=== PATIENT | female | born 1965 | race Caucasian/White ===

== ENCOUNTER 2016-04-19 10:31 | Emergency (ER) | payer MEDICAID ==
[~2016-04-19] VITALS: Ht 165.1 cm; Wt 62.6 kg
[2016-04-19 10:31] VITALS: BP 116/77; PULSE 74; RESP 19; TEMP 97.3; O2SAT 98
[~2016-04-19 10:31] MED LIST: ARIP15TA2 PO; BUSP15TA PO; KLO1 PO; SERT100T PO; TRAZ150T77 PO
--- NOTE | 2016-04-19 10:31 | NUR ---
Patient triaged and placed in waiting room. VSS and patient appears in no acute distress at this time. Accompanied by FRIEND, awaiting available bed, and MD notified of need for MSE.
[2016-04-19 11:07] LABS: BASOPHILS # (AUTO) 0.1 K/uL (0.0-0.2); BASOPHILS % (AUTO) 0.5 % (0.0-2.0); EOSINOPHILS # (AUTO) 0.3 K/uL (0.0-0.4); EOSINOPHILS % (AUTO) 2.6 % (0.0-4.0); HEMATOCRIT 38.3 % (36-48); HEMOGLOBIN 13.1 g/dL (12.0-16.0); LYMPHOCYTES # (AUTO) 1.8 K/uL (1.0-5.5); MEAN CORPUSCULAR HEMOGLOBIN 31 pg (27-31); MEAN CORPUSCULAR HGB CONC 34 % (32-36); MEAN CORPUSCULAR VOLUME 91 fL (79.0-98.0); MONOCYTES # (AUTO) 0.6 K/uL (0.0-1.0); MONOCYTES % (AUTO) 5.7 % (1.7-9.3); NEUTROPHILS # (AUTO) 8.5 K/uL (1.8-7.7); NEUTROPHILS % (AUTO) 75.2 % (40.0-70.0); PLATELET COUNT (AUTO) 248 K/uL (130-430); RED CELL DISTRIBUTION WIDTH 13.4 % (9.0-15.0); WHITE BLOOD COUNT (AUTO) 11.3 K/uL (4.8-10.8)
[2016-04-19 11:11] LABS: CALCIUM 9.7 mg/dL (8.4-11.0); CREATININE 0.86 mg/dL (0.55-1.30)
[2016-04-19 11:14] LABS: INR 0.9 (0.8-1.2); PROTHROMBIN TIME 9.4 SECS (9.5-12.5)
[2016-04-19 11:16] LABS: ALBUMIN 3.7 g/dL (3.4-4.8); TOTAL BILIRUBIN 0.3 mg/dL (0.0-1.0); TOTAL PROTEIN, SERUM 7.5 g/dL (6.4-8.3)
--- NOTE | 2016-04-19 11:40 | NUR ---
DR SINGH EVALUATING PT IN TRIAGE ROOM
--- NOTE | 2016-04-19 12:00 | NUR ---
Patient to ER bed 4 to gown for evaluation by nathanael. Side rails up. Report given to me.
--- NOTE | 2016-04-19 12:10 | NUR ---
Patient presents to the emergency department with complaints of generalized 10/10 generalized abd pain with nausea the last few days. denies diarrhea. Patient states she has not taken anything for pain. will continue to monitor.
[2016-04-19] MEDS ORDERED: cefTRIAXone 1 GM IVPB PREMIX 50 ML IV ONE (12:15)
[2016-04-19 12:19] LABS: BILIRUBIN,URINE NEGATIVE (NEGATIVE); BLOOD, URINE NEGATIVE (NEGATIVE); CLARITY/URINE CLEAR (CLEAR); COLOR,URINE YELLOW (YELLOW); GLUCOSE,URINE NEGATIVE (NEGATIVE); KETONES,URINE NEGATIVE (NEGATIVE); LEUKOCYTE ESTERASE ,URINE NEGATIVE (NEGATIVE); NITRITE, URINE NEGATIVE (NEGATIVE); PH,URINE 5.5 (5.0-8.0); PROTEIN URINE NEGATIVE (NEGATIVE); UROBILINOGEN,URINE 0.2 (0.2-1.0)
[2016-04-19] MEDS ORDERED: PROCHLORPERAZINE EDISYLATE 10 MG/2 ML VIAL IVP ONE (12:30)
[2016-04-19] MEDS ORDERED: ACETAMINOPHEN 500 MG TABLET PO ONE (12:30)
[2016-04-19] MEDS ORDERED: ONDANSETRON HCL 4 MG/2 ML VIAL IVP ONE ×2 (12:30→17:45)
--- NOTE | 2016-04-19 12:37 | NUR ---
medicated pt per MD order
--- NOTE | 2016-04-19 12:48 | NUR ---
pt to [facility] for CT scan
--- NOTE | 2016-04-19 13:35 | NUR ---
care endorsed to quan hickey
--- NOTE | 2016-04-19 14:20 | NUR ---
Pt noted to be laying in bed in no acute distress, states she no longer has nausea but still has pain, pt requesting pain medication, Dr paula notified, no further orders at this time.
--- NOTE | 2016-04-19 16:00 | NUR ---
Still waiting for CT scan results. patient aware. monitor notified to call [facility] again for results.
--- NOTE | 2016-04-19 16:57 | NUR ---
Pt resting in bed, no acute distress
--- NOTE | 2016-04-19 17:35 | NUR ---
Dr paula made aware that patient requesting for more pain medication, Dr paula at bedside speaking to patient
[2016-04-19] MEDS ORDERED: MORPHINE 4 MG/ML INJ. SYRINGE IVP ONE (17:45)
--- NOTE | 2016-04-19 18:10 | NUR ---
Patient made aware of the effects of morphine and was educated not to drive or operate any heavy machinery while on the medication, not to mix the medications with other drugs that increase drowsiness, or not to take illicit drugs. Patient made aware that she may be at risk for falls and to ask for assistance when ambulating.
--- NOTE | 2016-04-19 18:15 | NUR ---
Dr paula speaking to patient regarding results
--- NOTE | 2016-04-19 18:40 | NUR ---
Patient given written and verbal discharge instructions and verbalizes understanding. ER MD discussed with patient the results and treatment provided. Patient in stable condition. ID arm band removed. IV catheter removed intact and dressing applied, no active bleeding. No Rx given. Patient educated on pain management and to follow up with PMD. Pain Scale 0/10. Opportunity for questions provided and answered.
[2016-04-19 18:42] VITALS: BP 112/68; PULSE 64; RESP 16; TEMP 97.3; O2SAT 99
== END 2016-04-19 18:41 | disposition home or self-care (01) ==
LOC: SED 10:31
DX: R10.30 Lower abdominal pain, unspecified (principal); R19.4 Change in bowel habit; J45.909 Unspecified asthma, uncomplicated; F31.9 Bipolar disorder, unspecified; Z88.1 Allergy status to other antibiotic agents; Z88.8 Allergy status to other drugs, medicaments and biological substances
CPT/HCPCS: 36415; 74176; 80053; 81003; 81025; 83605; 83690; 85025; 85610; 85730; 87040; 96365; 96375; 96376; 99285; J0696; J0780; J2270; J2405

== ENCOUNTER 2017-08-20 10:24 | Inpatient (IN) | payer MEDICAID ==
[~2017-08-20] VITALS: Ht 165.1 cm; Wt 63.7 kg
[2017-08-20 10:24] VITALS: BP_SYST 126
[2017-08-20] MEDS ORDERED: fentaNYL CITRATE/PF 100 MCG/2 ML AMP IVP ONE ×2 (10:30→12:45)
[2017-08-20] MEDS ORDERED: MORPHINE 2 MG/ML INJ. SYRINGE IVP ONE (10:30)
[2017-08-20] MEDS ORDERED: NACL 0.9% 1,000 ML IV ONE (10:30)
[2017-08-20 10:56] LABS: BASOPHILS # (AUTO) 0.1 K/uL (0.0-0.2); BASOPHILS % (AUTO) 1.6 % (0.0-2.0); EOSINOPHILS # (AUTO) 0.3 K/uL (0.0-0.4); EOSINOPHILS % (AUTO) 3.7 % (0.0-4.0); HEMATOCRIT 39.7 % (36-48); HEMOGLOBIN 13.3 g/dL (12.0-16.0); LYMPHOCYTES # (AUTO) 2.4 K/uL (1.0-5.5); LYMPHOCYTES % (AUTO) 33.7 % (20.5-51.5); MEAN CORPUSCULAR HEMOGLOBIN 32 pg (27-31); MEAN CORPUSCULAR HGB CONC 33 % (32-36); MEAN CORPUSCULAR VOLUME 95 fL (79.0-98.0); MONOCYTES # (AUTO) 0.5 K/uL (0.0-1.0); MONOCYTES % (AUTO) 7.3 % (1.7-9.3); NEUTROPHILS # (AUTO) 3.7 K/uL (1.8-7.7); NEUTROPHILS % (AUTO) 53.7 % (40.0-70.0); PLATELET COUNT (AUTO) 365 K/uL (130-430)
[2017-08-20 11:27] LABS: ANION GAP 9 (5-15); CHLORIDE 101 mmol/L (98-107); CREATININE 0.98 mg/dL (0.55-1.30); GLUCOSE 155 mg/dL (70-99); POTASSIUM 3.4 mmol/L (3.5-5.1); SODIUM SERUM 136 mmol/L (136-145); UREA NITROGEN, BLOOD 8 mg/dL (8-21)
[2017-08-20 11:29] LABS: GFR AFRICAN AMERICAN 77 mL/min (>90)
[2017-08-20 11:36] LABS: ALANINE AMINOTRANSFERASE 26 U/L (12-78); ALBUMIN 3.7 g/dL (3.4-4.8); ASPARTATE AMINOTRANSFERASE 19 U/L (10-37); TOTAL BILIRUBIN 0.6 mg/dL (0.0-1.0)
[2017-08-20 11:37] LABS: ALCOHOL, BLOOD < 3 mg/dL (<10)
[2017-08-20 12:09] LABS: ACETAMINOPHEN < 1 ug/mL (1-30)
[2017-08-20 13:28] LABS: BARBITURATE, URINE NEGATIVE (NEG <=200); BENZODIAZEPINE, URINE NEGATIVE (NEG <=150); CANNABINOID, URINE POSITIVE (NEG <=50); COCAINE, URINE NEGATIVE (NEG <=150); METHAMPHETAMINES SCREEN,URINE POSITIVE (NEG <=500); OPIATE, URINE NEGATIVE (NEG <=100); PHENCYCLIDINE SCREEN,URINE NEGATIVE (NEG <=25); UR TRICYCLIC ANTIDEPRESSANTS NEGATIVE (NEG <=300); URINE AMPHETAMINE POSITIVE (NEG <=500); URINE METHADONE NEGATIVE (NEG <=200); URINE OXYCODONE SCREEN NEGATIVE (NEG <=100); URINE PROPOXYPHENE SCREEN NEGATIVE (NEG <=300)
[2017-08-20 13:30] VITALS: BP_SYST 139
[2017-08-20] MEDS ORDERED: DIPHENHYDRAMINE INJ 50 MG/ML VIAL IVP PRN (13:45)
[2017-08-20] MEDS ORDERED: ONDANSETRON HCL 4 MG/2 ML VIAL IVP PRN (13:45)
[2017-08-20] MEDS: HYDROmorphone 1 MG INJ. 1 MG/ML AMPUL IVP PRN ×2 (14:46→21:08)
[2017-08-20 16:00] VITALS: BP_SYST 127
[2017-08-20] MEDS ORDERED: ARIPiprazole 5 MG TAB PO SCH (17:00)
[2017-08-20] MEDS ORDERED: TEMAZEPAM 15 MG CAPSULE PO PRN (17:00)
[2017-08-20] MEDS: HYDROmorphone 2 MG TAB PO SCH ×2 (18:01→21:00)
[2017-08-20] MEDS: busPIRone HCL 5 MG TABLET PO SCH (18:01)
[2017-08-20] MEDS: METHOCARBAMOL 500 MG TABLET PO SCH ×2 (18:01→20:57)
[2017-08-20] MEDS ORDERED: POTASSIUM CHLORIDE 20 MEQ TAB.PRT.SR PO ONE (18:30)
[2017-08-20] MEDS ORDERED: LORazepam 2 MG/ML VIAL IVP PRN (18:30)
[2017-08-20 20:30] VITALS: BP_SYST 112
[2017-08-20] MEDS: DOCUSATE SODIUM 250 MG CAPSULE PO SCH (20:56)
[2017-08-20] MEDS: clonazePAM 0.5 MG TABLET PO SCH (20:57)
[2017-08-20] MEDS: traZODone HCL 50 MG TABLET (DESYREL) PO SCH (21:02)
[2017-08-21 00:40] VITALS: BP_SYST 104
[2017-08-21] MEDS: busPIRone HCL 5 MG TABLET PO SCH ×3 (06:09→17:19)
[2017-08-21 08:00] VITALS: BP_SYST 107
[2017-08-21] MEDS: METHOCARBAMOL 500 MG TABLET PO SCH ×4 (09:29→22:09)
[2017-08-21] MEDS: HYDROmorphone 2 MG TAB PO SCH ×4 (09:29→22:08)
[2017-08-21] MEDS: clonazePAM 0.5 MG TABLET PO SCH ×2 (09:30→22:09)
[2017-08-21] MEDS: DOCUSATE SODIUM 250 MG CAPSULE PO SCH ×2 (09:30→22:08)
[2017-08-21] MEDS: SERTRALINE HCL 50 MG TABLET PO SCH (09:30)
[2017-08-21] MEDS: ARIPiprazole 5 MG TAB PO SCH ×2 (10:12→22:08)
[2017-08-21 11:16] VITALS: BP_SYST 90
[2017-08-21] MEDS: HYDROmorphone 1 MG INJ. 1 MG/ML AMPUL IVP PRN ×2 (12:22→20:14)
[2017-08-21 15:34] VITALS: BP_SYST 91
[2017-08-21 20:15] VITALS: BP_SYST 132
[2017-08-21] MEDS: traZODone HCL 50 MG TABLET (DESYREL) PO SCH (22:08)
[2017-08-21] MEDS: BISACODYL 5 MG TABLET.DR (DULCOLAX) PO PRN (22:09)
[2017-08-22 00:27] VITALS: BP_SYST 122
[2017-08-22] MEDS: busPIRone HCL 5 MG TABLET PO SCH ×3 (06:34→16:44)
[2017-08-22 08:00] VITALS: BP_SYST 111
[2017-08-22] MEDS: DOCUSATE SODIUM 250 MG CAPSULE PO SCH ×2 (08:38→20:14)
[2017-08-22] MEDS: SERTRALINE HCL 50 MG TABLET PO SCH (08:38)
[2017-08-22] MEDS: clonazePAM 0.5 MG TABLET PO SCH ×2 (08:38→20:15)
[2017-08-22] MEDS: METHOCARBAMOL 500 MG TABLET PO SCH ×4 (08:39→20:14)
[2017-08-22] MEDS: ARIPiprazole 5 MG TAB PO SCH ×2 (08:39→20:15)
[2017-08-22] MEDS: HYDROmorphone 2 MG TAB PO SCH ×4 (08:39→20:15)
[2017-08-22] MEDS: HYDROmorphone 1 MG INJ. 1 MG/ML AMPUL IVP PRN (08:55)
[2017-08-22 11:08] VITALS: BP_SYST 111
[2017-08-22] MEDS: BISACODYL 5 MG TABLET.DR (DULCOLAX) PO PRN (12:15)
[2017-08-22 15:35] VITALS: BP_SYST 93
[2017-08-22 16:46] VITALS: BP_SYST 125
[2017-08-22 20:00] VITALS: BP_SYST 126
[2017-08-22] MEDS: traZODone HCL 50 MG TABLET (DESYREL) PO SCH (20:14)
[2017-08-23 00:11] VITALS: BP_SYST 115
[2017-08-23] MEDS: busPIRone HCL 5 MG TABLET PO SCH ×3 (06:17→17:41)
[2017-08-23 08:00] VITALS: BP_SYST 112
[2017-08-23] MEDS: METHOCARBAMOL 500 MG TABLET PO SCH ×4 (09:02→20:07)
[2017-08-23] MEDS: SERTRALINE HCL 50 MG TABLET PO SCH (09:02)
[2017-08-23] MEDS: HYDROmorphone 2 MG TAB PO SCH ×4 (09:03→20:07)
[2017-08-23] MEDS: clonazePAM 0.5 MG TABLET PO SCH ×2 (09:03→20:07)
[2017-08-23] MEDS: DOCUSATE SODIUM 250 MG CAPSULE PO SCH (09:03)
[2017-08-23] MEDS: ARIPiprazole 5 MG TAB PO SCH ×2 (09:08→20:06)
[2017-08-23 12:05] VITALS: BP_SYST 104
[2017-08-23 15:03] LABS: CALCIUM 9.8 mg/dL (8.4-11.0); CREATININE 1.15 mg/dL (0.55-1.30); HEMATOCRIT 46.8 % (36-48); HEMOGLOBIN 16.2 g/dL (12.0-16.0); MEAN CORPUSCULAR HEMOGLOBIN 32 pg (27-31); MEAN CORPUSCULAR HGB CONC 35 % (32-36); MEAN CORPUSCULAR VOLUME 92 fL (79.0-98.0); PLATELET COUNT (AUTO) 325 K/uL (130-430); POTASSIUM 4.8 mmol/L (3.5-5.1); RED BLOOD CELL COUNT(AUTO) 5.07 MIL/uL (4.2-6.2); RED CELL DISTRIBUTION WIDTH 12.8 % (9.0-15.0); WHITE BLOOD COUNT (AUTO) 11.9 K/uL (4.8-10.8)
[2017-08-23 15:19] LABS: BAND % (MANUAL) 0 % (0-6); BASOPHILS % (MANUAL) 0 % (0-2); EOSINOPHILS % (MANUAL) 1 % (0-7); LYMPHOCYTES % (MANUAL) 24 % (20-46); MONOCYTES % (MANUAL) 4 % (0-11)
[2017-08-23 17:12] VITALS: BP_SYST 110
[2017-08-23 20:00] VITALS: BP_SYST 110
[2017-08-23] MEDS: traZODone HCL 50 MG TABLET (DESYREL) PO SCH (20:06)
[2017-08-24 00:26] VITALS: BP_SYST 116
[2017-08-24] MEDS: busPIRone HCL 5 MG TABLET PO SCH ×2 (06:15→11:30)
[2017-08-24 07:45] VITALS: BP_SYST 90
[2017-08-24] MEDS: HYDROmorphone 2 MG TAB PO SCH ×2 (09:00→13:00)
[2017-08-24] MEDS: ARIPiprazole 5 MG TAB PO SCH (09:03)
[2017-08-24] MEDS: SERTRALINE HCL 50 MG TABLET PO SCH (09:06)
[2017-08-24] MEDS: clonazePAM 0.5 MG TABLET PO SCH (09:06)
[2017-08-24] MEDS: METHOCARBAMOL 500 MG TABLET PO SCH ×2 (09:09→13:00)
[2017-08-24 11:08] VITALS: BP_SYST 122
== END 2017-08-24 14:20 | disposition left against medical advice (07) | DRG 347 ==
LOC: SED 10:24 → SMU 13:05
PROVIDERS: ADMIT Internal Medicine; ATTEND Internal Medicine
DX: M54.40 Lumbago with sciatica, unspecified side (principal); F25.9 Schizoaffective disorder, unspecified; M51.36 Other intervertebral disc degeneration, lumbar region; F32.9 Major depressive disorder, single episode, unspecified; M48.00 Spinal stenosis, site unspecified; J45.909 Unspecified asthma, uncomplicated; Z88.9 Allergy status to unspecified drugs, medicaments and biological substances; Z91.19 Patient's noncompliance with other medical treatment and regimen
CPT/HCPCS: 36415; 72131; 72148; 72192-TC; 80048; 80053; 80307; 82962; 85007; 85025; 85027; 96361; 96374; 96375; 97110-GP; 97116-GP; 97530-GP; 99285; G0480; G0481; G0482; J1170; J1200; J2060; J3010

== ENCOUNTER 2017-09-30 09:22 | Inpatient (IN) | payer MEDICAID ==
[~2017-09-30] VITALS: Ht 165.1 cm; Wt 62.8 kg
--- NOTE | 2017-09-30 09:22 | NUR ---
Pt wheeled to bed 6
--- NOTE | 2017-09-30 09:23 | NUR ---
ER at bedside examining patient.
[2017-09-30 09:25] VITALS: BP_SYST 130
--- NOTE | 2017-09-30 09:25 | NUR ---
C/O LLQ abd pain radiating to back since yesterday. Denies n/v/d. Last BM was this morning "it was hard"
[2017-09-30] MEDS ORDERED: PIPERACILLIN/TAZO 3.38 GM in NS 50 ML IV ONE (09:30)
[2017-09-30] MEDS ORDERED: MORPHINE 4 MG/ML INJ. SYRINGE IVP ONE (09:30)
[2017-09-30] MEDS ORDERED: DIPHENHYDRAMINE INJ 50 MG/ML VIAL IVP ONE (09:30)
[2017-09-30] MEDS ORDERED: PIPERACILLIN/TAZOBACTAM 3.375 GM/VIAL (ZOSYN) IV ONE (09:34)
--- NOTE | 2017-09-30 09:43 | NUR ---
Medicated for pain per MD orders. VS WNL. Blood cultures drawn prior to abx admin. IVPB infusing to LAC with no s/sx of infiltration at this time. Pt notified of possible side effects, verbalized understanding. Placed on sp02 monitoring. Bed in lowest position, side rails up. States that she is unable to pee at this time. Denies nausea.
[2017-09-30 10:09] LABS: BASOPHILS # (AUTO) 0.1 K/uL (0.0-0.2); BASOPHILS % (AUTO) 1.1 % (0.0-2.0); EOSINOPHILS # (AUTO) 0.3 K/uL (0.0-0.4); EOSINOPHILS % (AUTO) 3.3 % (0.0-4.0); HEMOGLOBIN 14.3 g/dL (12.0-16.0); LYMPHOCYTES % (AUTO) 25.9 % (20.5-51.5); MEAN CORPUSCULAR HEMOGLOBIN 31 pg (27-31); MEAN CORPUSCULAR HGB CONC 34 % (32-36); MEAN CORPUSCULAR VOLUME 91 fL (79.0-98.0); MONOCYTES # (AUTO) 0.6 K/uL (0.0-1.0); MONOCYTES % (AUTO) 7.2 % (1.7-9.3); NEUTROPHILS # (AUTO) 4.7 K/uL (1.8-7.7); NEUTROPHILS % (AUTO) 62.5 % (40.0-70.0); PLATELET COUNT (AUTO) 297 K/uL (130-430); RED BLOOD CELL COUNT(AUTO) 4.62 MIL/uL (4.2-6.2); RED CELL DISTRIBUTION WIDTH 12.8 % (9.0-15.0); WHITE BLOOD COUNT (AUTO) 7.7 K/uL (4.8-10.8)
--- NOTE | 2017-09-30 10:20 | NUR ---
Pt states the pain is starting to come back. ER MD notified.
[2017-09-30 10:29] LABS: PROTHROMBIN TIME 9.9 SECS (9.5-12.5)
--- NOTE | 2017-09-30 10:33 | NUR ---
Pt ambulated to restroom with steady gait. UA sent to lab.
[2017-09-30 10:37] LABS: CALCIUM 9.3 mg/dL (8.4-11.0); CREATININE 1.01 mg/dL (0.55-1.30)
[2017-09-30 10:41] LABS: BILIRUBIN,URINE NEGATIVE (NEGATIVE); BLOOD, URINE NEGATIVE (NEGATIVE); CLARITY/URINE CLEAR (CLEAR); COLOR,URINE YELLOW (YELLOW); GLUCOSE,URINE NEGATIVE (NEGATIVE); KETONES,URINE NEGATIVE (NEGATIVE); LEUKOCYTE ESTERASE ,URINE NEGATIVE (NEGATIVE); NITRITE, URINE NEGATIVE (NEGATIVE); PROTEIN URINE NEGATIVE (NEGATIVE); UROBILINOGEN,URINE 0.2 (0.2-1.0)
[2017-09-30 10:41] LABS: TOTAL BILIRUBIN 0.5 mg/dL (0.0-1.0)
[2017-09-30 10:44] LABS: POTASSIUM 2.8 mmol/L (3.5-5.1)
[2017-09-30] MEDS ORDERED: POTASSIUM CHLORIDE 20 MEQ/PKT PACKET PO ONE (10:45)
[2017-09-30] MEDS ORDERED: POTASSIUM CHLORIDE 20 MEQ TAB.PRT.SR PO ONE (10:45)
[2017-09-30] MEDS ORDERED: MAGNESIUM CITRATE 300 ML ORAL SOLUTION PO ONE (11:00)
--- NOTE | 2017-09-30 11:17 | NUR ---
Medication administered. Pt tolerated well. Pt reports 10/[address] Pineda notified.
[2017-09-30] MEDS ORDERED: NACL 0.9% 1,000 ML IV ONE (11:30)
[2017-09-30] MEDS ORDERED: MORPHINE 2 MG/ML INJ. SYRINGE IVP ONE (11:30)
--- NOTE | 2017-09-30 11:40 | NUR ---
2mg Morphine administered. Pt tolerated well. No adverse reactions noted.
--- NOTE | 2017-09-30 12:18 | NUR ---
Pt resting comfortably in bed with no signs of distress
--- NOTE | 2017-09-30 13:38 | NUR ---
Pt resting comfortably in bed, reports 07/16 to abdomen, ice chips provided per request
[2017-09-30 14:04] LABS: CANNABINOID, URINE POSITIVE (NEG <=50); METHAMPHETAMINES SCREEN,URINE POSITIVE (NEG <=500); URINE AMPHETAMINE POSITIVE (NEG <=500)
[2017-09-30 14:05] LABS: BARBITURATE, URINE NEGATIVE (NEG <=200); BENZODIAZEPINE, URINE NEGATIVE (NEG <=150); COCAINE, URINE NEGATIVE (NEG <=150); PHENCYCLIDINE SCREEN,URINE NEGATIVE (NEG <=25); UR TRICYCLIC ANTIDEPRESSANTS NEGATIVE (NEG <=300); URINE METHADONE NEGATIVE (NEG <=200); URINE OXYCODONE SCREEN NEGATIVE (NEG <=100); URINE PROPOXYPHENE SCREEN NEGATIVE (NEG <=300)
[2017-09-30 14:07] LABS: OPIATE, URINE POSITIVE (NEG <=100)
--- NOTE | 2017-09-30 14:18 | NUR ---
ADMIT NOTE Received pt from ER to the floor with a diagnosis of POSSIBLE ACUTE PANCREATITIS UNDER THE CARE OF DR. BUTTERFIELD. Admission process initiated. patient oriented to pain management, safety and call light-teach back done.
--- NOTE | 2017-09-30 14:20 | NUR ---
Patient will be admitted to care of [facility]. Admitted to Telemetry unit. Will go to room 106A. Belongings list completed. Summary report printed. Report will be given at bedside.
[2017-09-30] MEDS: NACL 0.9% 1,000 ML IV SCH (15:25)
--- NOTE | 2017-09-30 15:41 | NUR ---
Continuation of Care Pt received from ADN, pt irritable and anxious, insistent on leaving building to smoke w/o signing form or waiting to be assessed. Presented pt w/ AMA form but she indicated that she wanted to stay, returned to unit. Admission assessment completed. IV fluids started. Pt reports pain on left upper and lower quadrants of abdomen. Reviewed safety precautions and oriented pt to room and call light. Bed check complete, bed alarm on and call light within reach
[2017-09-30 16:20] VITALS: BP_SYST 125
[2017-09-30] MEDS ORDERED: ARIPiprazole 5 MG TAB PO ONE (16:30)
[2017-09-30] MEDS ORDERED: SERTRALINE HCL 50 MG TABLET PO ONE (16:30)
[2017-09-30] MEDS: busPIRone HCL 5 MG TABLET PO SCH (16:49)
[2017-09-30] MEDS ORDERED: MAGNESIUM SULFATE 50 ML IV PRN (17:00)
[2017-09-30] MEDS ORDERED: POTASSIUM CHLORIDE 20 MEQ TAB.PRT.SR PO PRN (17:00)
[2017-09-30] MEDS ORDERED: ONDANSETRON HCL 4 MG/2 ML VIAL IVP PRN (17:00)
[2017-09-30] MEDS ORDERED: ACETAMINOPHEN 325 MG TABLET PO PRN (17:00)
[2017-09-30] MEDS ORDERED: clonazePAM 0.5 MG TABLET PO ONE (17:00)
[2017-09-30] MEDS ORDERED: DOCUSATE SODIUM 100 MG CAPSULE PO PRN (17:00)
[2017-09-30] MEDS ORDERED: ZOLPIDEM TARTRATE 5 MG TABLET PO PRN (17:00)
[2017-09-30] MEDS ORDERED: LORazepam 2 MG/ML VIAL IVP PRN (17:00)
--- NOTE | 2017-09-30 17:17 | NUR ---
CONSULT GI POSSIBLE ACUTE PANCREATITIS DR BOWLING [phone] DR COPE CHARGE AIDE S/W KALYN EXCHANGE@ [phone]
[2017-09-30] MEDS ORDERED: BELLADONNA ALKALOIDS/PHENOBARB 16.2 MG TABLET PO ONE (17:45)
--- NOTE | 2017-09-30 17:59 | NUR ---
Rounding Pt seen by Dr Ulloa, pt receiveing dinner try but to be NPO after midnight. Dr Schwab called for consult earlier. Pt has no s/s of SOB or distress, c/o intermittent pain but falls asleep on and off and is lethargic, preventing safe administration. Bed in low locked position with call light within reach and bed alarm on.
[2017-09-30 18:09] LABS: FREE T4 (FREE THYROXINE) 0.8 ng/dL (0.6-1.6); POTASSIUM 3.9 mmol/L (3.5-5.1)
[2017-09-30 19:12] LABS: THYROID STIMULATING HORMONE 1.43 uIu/mL (0.34-4.82)
--- NOTE | 2017-09-30 19:46 | NUR ---
Closing note pt resting in bed, breathing even and unlabored. Bed and safety check completed, report given and care endorsed to NOC shift, including Pt remaining NPO after midnight. Dr Schwab has been called for consult.
--- NOTE | 2017-09-30 19:50 | NUR ---
Opening note Pt asleep, arousable. VSS. Afebrile. Denies pain at this time. No s/s distress noted. IV fluids infusing LAC 20G clear, patent. Pt NPO. Call light/items within reach. Pt walks to the bathroom, steady gait. Will continue to monitor.
[2017-09-30 20:00] VITALS: BP_SYST 106
[2017-09-30] MEDS ORDERED: MUPIROCIN 2% TOPICAL OINTMENT 22 GM NS PRN (21:00)
[2017-09-30] MEDS: traZODone HCL 50 MG TABLET (DESYREL) PO SCH (21:51)
[2017-09-30] MEDS: clonazePAM 0.5 MG TABLET PO SCH (21:51)
[2017-09-30] MEDS: ARIPiprazole 5 MG TAB PO SCH (21:51)
--- NOTE | 2017-09-30 22:00 | NUR ---
Rounds Pt asleep, easily arousable. No acute distress noted. Pt refused SCD machine on. Pt walks to the bathroom. Call light within reach. To monitor.
[2017-10-01] VITALS: BP_SYST 100
--- NOTE | 2017-10-01 00:10 | NUR ---
Rounds Pt asleep. No s/s distress noted. Call light within reach. To monitor.
--- NOTE | 2017-10-01 02:10 | NUR ---
Rounds Pt asleep, no s/s distress noted. IV fluids infusing as ordered, clear patent. Bed low/locked position. Call light within reach. Will continue to monitor.
[2017-10-01] MEDS: NACL 0.9% 1,000 ML IV SCH ×3 (02:35→21:19)
[2017-10-01 04:45] VITALS: BP_SYST 105
--- NOTE | 2017-10-01 04:50 | NUR ---
Pain mgmt Pt called c/o abd pain 08/16. Medicated with Morphine 1mg IVP as needed. Call light within reach. IVF infusing L. AC 20G no infiltration noted. Will continue to monitor.
[2017-10-01] MEDS: MORPHINE 2 MG/ML INJ. SYRINGE IVP PRN ×2 (04:52→10:20)
--- NOTE | 2017-10-01 04:55 | NUR ---
MRSA specimen collected and sent to lab.
--- NOTE | 2017-10-01 06:10 | NUR ---
Closing note/Lab draw Pt asleep. No s/s distress noted. IV fluids infusing L. AC20G no infiltration noted. Per mill laborer pt refused lab draw at this time and request it to be drawn after breakfast. Will endorse to am nurse.
--- NOTE | 2017-10-01 07:00 | NUR ---
Dr. Church (GI) here to see pt.
--- NOTE | 2017-10-01 07:25 | NUR ---
Opening Note: Patient laying in bed resting. Patient denies abdominal pain and discomfort. Patient denies nausea and vomiting. Breathing is even and unlabored with no distress noted. IV patent and intact running IV fluids per MD order. Safety precautions in place; bed in lowest position, wheels locked, side rails x3, bed alarm activated and call light within reach. Will continue to monitor.
[2017-10-01 08:03] VITALS: BP_SYST 121
[2017-10-01] MEDS: busPIRone HCL 5 MG TABLET PO SCH ×3 (08:12→16:26)
[2017-10-01] MEDS: SERTRALINE HCL 50 MG TABLET PO SCH (08:13)
[2017-10-01] MEDS: ARIPiprazole 5 MG TAB PO SCH ×2 (08:13→21:00)
[2017-10-01] MEDS: clonazePAM 0.5 MG TABLET PO SCH ×2 (08:13→21:00)
[2017-10-01 08:19] LABS: T4 (THYROXINE) 6.9 ug/dL (4.5-12.0)
[2017-10-01 09:10] LABS: CALCIUM 8.7 mg/dL (8.4-11.0); CREATININE 0.81 mg/dL (0.55-1.30); PHOSPHORUS 3.5 mg/dL (2.7-4.5); POTASSIUM 4.1 mmol/L (3.5-5.1)
--- NOTE | 2017-10-01 10:05 | NUR ---
Rounding: Patient laying in bed resting, central supply technician at bedside. New bag of IV fluids started. Patient denies pain and discomfort. No distress noted. Will continue to monitor.
[2017-10-01 10:09] LABS: BASOPHILS # (AUTO) 0.1 K/uL (0.0-0.2); BASOPHILS % (AUTO) 1.3 % (0.0-2.0); EOSINOPHILS % (AUTO) 0.3 % (0.0-4.0); HEMATOCRIT 38.9 % (36-48); HEMOGLOBIN 13.4 g/dL (12.0-16.0); LYMPHOCYTES # (AUTO) 1.3 K/uL (1.0-5.5); LYMPHOCYTES % (AUTO) 13.4 % (20.5-51.5); MEAN CORPUSCULAR HEMOGLOBIN 32 pg (27-31); MEAN CORPUSCULAR HGB CONC 35 % (32-36); MEAN CORPUSCULAR VOLUME 93 fL (79.0-98.0); MONOCYTES # (AUTO) 0.4 K/uL (0.0-1.0); MONOCYTES % (AUTO) 4.2 % (1.7-9.3); NEUTROPHILS # (AUTO) 7.6 K/uL (1.8-7.7); NEUTROPHILS % (AUTO) 80.8 % (40.0-70.0); PLATELET COUNT (AUTO) 244 K/uL (130-430); RED CELL DISTRIBUTION WIDTH 12.8 % (9.0-15.0); WHITE BLOOD COUNT (AUTO) 9.4 K/uL (4.8-10.8)
--- NOTE | 2017-10-01 12:13 | NUR ---
Rounding: Patient laying in bed resting. Patient denies pain and discomfort. Breathing is even and unlabored with no distress noted. Morning mediations tolerated well. No current needs. Safety precautions in place. Will continue to monitor.
--- NOTE | 2017-10-01 14:01 | NUR ---
Rounding: Patient laying in bed asleep. Patient shows no signs of pain or discomfort. No respiratory distress or SOB noted. Will continue to monitor.
--- NOTE | 2017-10-01 16:12 | NUR ---
Rounding: Patient laying in bed asleep. Patient shows no signs of pain and discomfort. Breathing is even and unlabored with no distress noted. Safety precautions in place. Will continue to monitor.
[2017-10-01 16:20] VITALS: BP_SYST 127
--- NOTE | 2017-10-01 18:35 | NUR ---
Closing Note: Patient laying in bed resting. Patient denies abdominal pain and discomfort. Patient denies nausea and vomiting. Breathing is even and unlabored with no distress noted. IV patent and intact running IV fluids per MD order. SCD's in place. Safety precautions in place; bed in lowest position, wheels locked, side rails x3, bed alarm activated and call light within reach. All needs met. Will endorse plan of care to NOC, nurse.
[2017-10-01 20:00] VITALS: BP_SYST 125
--- NOTE | 2017-10-01 20:10 | NUR ---
Opening note Pt asleep, easily arousable and agitated. Pt states she just want to sleep. IVF infusing as ordered. Call light within reach. Bed low/locked. To monitor.
[2017-10-01] MEDS: traZODone HCL 50 MG TABLET (DESYREL) PO SCH (21:00)
--- NOTE | 2017-10-01 21:22 | NUR ---
Pt refused meds Pt refused meds and dinner tonight. Pt states she just want to sleep. IVF infusing as ordered. Call light within reach. To monitor.
--- NOTE | 2017-10-02 00:35 | NUR ---
Rounds Pt asleep no s/s distress or discomfort noted. Call light within reach. Safety measures in place. Will continue to monitor.
[2017-10-02] MEDS: MORPHINE 2 MG/ML INJ. SYRINGE IVP PRN ×2 (03:35→08:33)
--- NOTE | 2017-10-02 03:35 | NUR ---
Rounds/Pain mgmt Pt called and c/o abd pain 08/16. Medicated within Morphine 1mg IVP as needed. Pt denies any N/V. IVF infusing as ordered, clear, patent. Call light within reach. To monitor.
--- NOTE | 2017-10-02 05:35 | NUR ---
Rounds Pt awake ambulates to the bathroom, steady gait. IVF infusing as ordered L. AC no infiltration noted. Call light within reach. To monitor.
[2017-10-02] MEDS: NACL 0.9% 1,000 ML IV SCH (06:00)
[2017-10-02] MEDS: busPIRone HCL 5 MG TABLET PO SCH ×2 (07:00→12:08)
--- NOTE | 2017-10-02 07:15 | NUR ---
Closing note Pt asleep, easily arousable. Pt refused am meds and agitated. Pt states I just want to sleep. Safety precaution in place. CAll light remains within reach. Endorsed to am nurse.
--- NOTE | 2017-10-02 07:25 | NUR ---
Initial notes: Patient on bed sleeping. Stable. I.V. access patent. Safety measures in placed. Call light within reach. Report received from fast food shift supervisor.
--- NOTE | 2017-10-02 07:53 | NUR ---
LAB: patient refused lab works. She said "Its too early".Will re-approach.
[2017-10-02 08:00] VITALS: BP_SYST 131
[2017-10-02] MEDS: clonazePAM 0.5 MG TABLET PO SCH (08:32)
[2017-10-02] MEDS: ARIPiprazole 5 MG TAB PO SCH (08:32)
[2017-10-02] MEDS: SERTRALINE HCL 50 MG TABLET PO SCH (08:32)
--- NOTE | 2017-10-02 08:39 | NUR ---
rounds: patient sleepy. Complained of abdominal pain 09/15. Due pain meds given thru ivp.
[2017-10-02 09:14] LABS: HEMATOCRIT 38.9 % (36-48); HEMOGLOBIN 13.3 g/dL (12.0-16.0); MEAN CORPUSCULAR HEMOGLOBIN 32 pg (27-31); MEAN CORPUSCULAR HGB CONC 34 % (32-36); MEAN CORPUSCULAR VOLUME 92 fL (79.0-98.0); PLATELET COUNT (AUTO) 248 K/uL (130-430); RED BLOOD CELL COUNT(AUTO) 4.22 MIL/uL (4.2-6.2); RED CELL DISTRIBUTION WIDTH 12.5 % (9.0-15.0); WHITE BLOOD COUNT (AUTO) 13.6 K/uL (4.8-10.8)
[2017-10-02 09:42] LABS: BAND % (MANUAL) 1 % (0-6)
[2017-10-02 09:43] LABS: BASOPHILS % (MANUAL) 0 % (0-2); EOSINOPHILS % (MANUAL) 0 % (0-7); LYMPHOCYTES % (MANUAL) 19 % (20-46); MONOCYTES % (MANUAL) 6 % (0-11)
[2017-10-02 09:50] LABS: POTASSIUM 3.8 mmol/L (3.5-5.1)
[2017-10-02 10:05] LABS: CALCIUM 9.2 mg/dL (8.4-11.0); CREATININE 0.87 mg/dL (0.55-1.30)
[2017-10-02 10:08] LABS: PHOSPHORUS 2.9 mg/dL (2.7-4.5)
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
[2017-10-02 11:08] LABS: BASOPHILS # (AUTO) 0.3 K/uL (0.0-0.2); EOSINOPHILS % (AUTO) 0.3 % (0.0-4.0); HEMOGLOBIN 12.9 g/dL (12.0-16.0); LYMPHOCYTES # (AUTO) 2.5 K/uL (1.0-5.5); LYMPHOCYTES % (AUTO) 19.9 % (20.5-51.5); MEAN CORPUSCULAR HEMOGLOBIN 32 pg (27-31); MEAN CORPUSCULAR HGB CONC 35 % (32-36); MEAN CORPUSCULAR VOLUME 91 fL (79.0-98.0); MONOCYTES # (AUTO) 0.8 K/uL (0.0-1.0); MONOCYTES % (AUTO) 6.4 % (1.7-9.3); NEUTROPHILS % (AUTO) 71.4 % (40.0-70.0); PLATELET COUNT (AUTO) 242 K/uL (130-430); RED BLOOD CELL COUNT(AUTO) 4.06 MIL/uL (4.2-6.2); RED CELL DISTRIBUTION WIDTH 12.7 % (9.0-15.0); WHITE BLOOD COUNT (AUTO) 12.6 K/uL (4.8-10.8)
[2017-10-02] MEDS ORDERED: BUSP5TAB3 PO (11:37)
[2017-10-02] MEDS ORDERED: SERT50TA PO (11:37)
[2017-10-02] MEDS ORDERED: TRAZ-123 PO (11:37)
[2017-10-02] MEDS ORDERED: KLO.5 PO (11:37)
[2017-10-02] MEDS ORDERED: ARIP5TAB19 PO (11:37)
[2017-10-02 12:43] VITALS: BP_SYST 134
[2017-10-02 13:03] VITALS: BP_SYST 134
--- NOTE | 2017-10-02 15:15 | NUR ---
D/C Patient Patient given medication reconciliation form and D/C instructions. Exit Care provided. Patient verbalized understanding. MD discussed with patient the results and treatment provided. Ambulatory with steady gait for discharge to home. Patient in stable condition, ID band removed. IV catheter removed, intact and dressing applied, no active bleeding. Rx of Ariprazole, Buspar, Klonopin, Zoloft and Trazadone given. Patient educated on pain management. All belongings sent with patient.
--- NOTE | 2017-10-02 15:25 | NUR ---
Prescription: Prescription gave it to the patient. She said "I don't care". Placed it at bedside. When she left, she left it at bedside. Tried to go after the patient, not able to catch her. Tried to call 3 phone numbers, wrong number.
== END 2017-10-02 15:15 | disposition home or self-care (01) | DRG 249 ==
LOC: SED 09:22 → STU 13:49
PROVIDERS: ADMIT Family Medicine; ATTEND Family Medicine
DX: K52.9 Noninfective gastroenteritis and colitis, unspecified (principal); G92 Toxic encephalopathy; E87.6 Hypokalemia; F17.210 Nicotine dependence, cigarettes, uncomplicated; F31.9 Bipolar disorder, unspecified; J45.909 Unspecified asthma, uncomplicated; F15.90 Other stimulant use, unspecified, uncomplicated; F12.90 Cannabis use, unspecified, uncomplicated; F11.90 Opioid use, unspecified, uncomplicated; F41.1 Generalized anxiety disorder; D72.829 Elevated white blood cell count, unspecified; F43.8 Other reactions to severe stress; Z88.8 Allergy status to other drugs, medicaments and biological substances; Z88.2 Allergy status to sulfonamides; Z79.899 Other long term (current) drug therapy; Z59.0 Homelessness; Z80.8 Family history of malignant neoplasm of other organs or systems
CPT/HCPCS: 36415; 71045; 80048; 80053; 80061; 80307; 81003; 82140-TC; 82150-TC; 83036; 83605; 83615-TC; 83690-TC; 83735-TC; 83880; 84100-TC; 84132-TC; 84436; 84439; 84443-TC; 84479; 84480; 84484; 85007; 85025; 85027; 85610-TC; 87040-TC; 87081; 93005; 93306; 96365; 96375; 99285; J1200; J2270; J2543; J7030

== ENCOUNTER 2018-02-10 02:59 | Emergency (ER) | payer MEDICAID ==
[~2018-02-10] VITALS: Ht 165.1 cm; Wt 62.1 kg
[~2018-02-10 02:59] MED LIST changes: -ARIP15TA2 PO; +ARIP5TAB19 PO; -BUSP15TA PO; +BUSP5TAB3 PO; +KLO.5 PO; -KLO1 PO; -SERT100T PO; +SERT50TA PO; +TRAZ-123 PO; -TRAZ150T77 PO
[2018-02-10 03:14] VITALS: BP_SYST 145
[2018-02-10 04:52] VITALS: BP_SYST 132
== END 2018-02-10 04:52 | disposition home or self-care (01) ==
LOC: SED 02:59
DX: S60.562A Insect bite (nonvenomous) of left hand, initial encounter (principal); S60.561A Insect bite (nonvenomous) of right hand, initial encounter; S40.862A Insect bite (nonvenomous) of left upper arm, initial encounter; S40.861A Insect bite (nonvenomous) of right upper arm, initial encounter; S80.862A Insect bite (nonvenomous), left lower leg, initial encounter; S80.861A Insect bite (nonvenomous), right lower leg, initial encounter; L03.114 Cellulitis of left upper limb; L03.113 Cellulitis of right upper limb; L03.116 Cellulitis of left lower limb; L03.115 Cellulitis of right lower limb; F17.200 Nicotine dependence, unspecified, uncomplicated; J45.909 Unspecified asthma, uncomplicated; Z79.899 Other long term (current) drug therapy; Z88.2 Allergy status to sulfonamides; Z88.6 Allergy status to analgesic agent; Z88.8 Allergy status to other drugs, medicaments and biological substances; W57.XXXA Bitten or stung by nonvenomous insect and other nonvenomous arthropods, initial encounter; Y93.89 Activity, other specified; Y92.89 Other specified places as the place of occurrence of the external cause; Y99.8 Other external cause status
CPT/HCPCS: 99283

== ENCOUNTER 2018-02-14 10:04 | Emergency (ER) | payer MEDICAID ==
[~2018-02-14] VITALS: Ht 165.1 cm; Wt 62.1 kg
[2018-02-14 10:32] VITALS: BP_SYST 110
[2018-02-14 11:13] LABS: BASOPHILS # (AUTO) 0.1 K/uL (0.0-0.2); BASOPHILS % (AUTO) 0.8 % (0.0-2.0); EOSINOPHILS # (AUTO) 0.3 K/uL (0.0-0.4); HEMATOCRIT 38.9 % (36-48); HEMOGLOBIN 13.3 g/dL (12.0-16.0); LYMPHOCYTES # (AUTO) 2.1 K/uL (1.0-5.5); LYMPHOCYTES % (AUTO) 22.7 % (20.5-51.5); MEAN CORPUSCULAR HEMOGLOBIN 31 pg (27-31); MEAN CORPUSCULAR HGB CONC 34 % (32-36); MEAN CORPUSCULAR VOLUME 90 fL (79.0-98.0); MONOCYTES # (AUTO) 0.9 K/uL (0.0-1.0); MONOCYTES % (AUTO) 9.8 % (1.7-9.3); NEUTROPHILS % (AUTO) 63.7 % (40.0-70.0); PLATELET COUNT (AUTO) 372 K/uL (130-430); RED BLOOD CELL COUNT(AUTO) 4.31 MIL/uL (4.2-6.2); RED CELL DISTRIBUTION WIDTH 13.1 % (9.0-15.0); WHITE BLOOD COUNT (AUTO) 9.4 K/uL (4.8-10.8)
[2018-02-14 11:28] LABS: CALCIUM 9.4 mg/dL (8.4-11.0); CREATININE 0.88 mg/dL (0.55-1.30); POTASSIUM 3.5 mmol/L (3.5-5.1)
[2018-02-14] MEDS ORDERED: methylPREDNISolone SOD SUCC/PF 62.5 MG/ML VIAL IVP ONE (11:30)
[2018-02-14] MEDS ORDERED: ALBUTEROL SULFATE 0.083% 2.5 MG/3 ML VIAL.NEB IH ONE (11:30)
[2018-02-14] MEDS ORDERED: IPRATROPIUM BROM 0.5 MG/2.5 ML VIAL.NEB (ATROVENT) IH ONE (11:30)
[2018-02-14 11:33] LABS: ALBUMIN 3.8 g/dL (3.4-4.8); TOTAL BILIRUBIN 0.6 mg/dL (0.0-1.0)
[2018-02-14 11:43] LABS: URINE AMPHETAMINE POSITIVE (NEG <=500)
[2018-02-14 11:44] LABS: METHAMPHETAMINES SCREEN,URINE POSITIVE (NEG <=500)
[2018-02-14 11:45] LABS: BARBITURATE, URINE NEGATIVE (NEG <=200); BENZODIAZEPINE, URINE NEGATIVE (NEG <=150); CANNABINOID, URINE POSITIVE (NEG <=50); COCAINE, URINE NEGATIVE (NEG <=150); OPIATE, URINE NEGATIVE (NEG <=100); PHENCYCLIDINE SCREEN,URINE NEGATIVE (NEG <=25); UR TRICYCLIC ANTIDEPRESSANTS NEGATIVE (NEG <=300); URINE METHADONE NEGATIVE (NEG <=200); URINE OXYCODONE SCREEN NEGATIVE (NEG <=100); URINE PROPOXYPHENE SCREEN NEGATIVE (NEG <=300)
[2018-02-14] MEDS ORDERED: MORPHINE 4 MG/ML INJ. SYRINGE IVP ONE (12:45)
[2018-02-14 13:30] VITALS: BP_SYST 130
== END 2018-02-14 13:35 | disposition home or self-care (01) ==
LOC: SED 10:04
DX: H11.32 Conjunctival hemorrhage, left eye (principal); M79.10 Myalgia, unspecified site; F15.10 Other stimulant abuse, uncomplicated; J45.909 Unspecified asthma, uncomplicated; R03.0 Elevated blood-pressure reading, without diagnosis of hypertension; F31.9 Bipolar disorder, unspecified; Z88.2 Allergy status to sulfonamides; Z88.6 Allergy status to analgesic agent; Z88.8 Allergy status to other drugs, medicaments and biological substances; Z79.899 Other long term (current) drug therapy
CPT/HCPCS: 36415; 71045; 80053; 80307; 85025; 86710; 94640; 96374; 96375; 99284; J2270; J2930; J7040; J7613

== ENCOUNTER 2018-06-02 20:09 | Emergency (ER) | payer MEDICAID ==
[~2018-06-02] VITALS: Ht 165.1 cm; Wt 62.1 kg
[~2018-06-02 20:09] MED LIST changes: -TRAZ-123 PO; +TRAZ-218 PO
[2018-06-02 20:41] VITALS: BP_SYST 108
[2018-06-02] MEDS ORDERED: HYDROcodone/ACETAMIN 5-325 MG TAB (NORCO/ VICODIN) PO ONE (21:15)
[2018-06-02 22:10] VITALS: BP_SYST 112
== END 2018-06-02 22:10 | disposition home or self-care (01) ==
LOC: SED 20:09
DX: M19.011 Primary osteoarthritis, right shoulder (principal); J45.909 Unspecified asthma, uncomplicated; F31.9 Bipolar disorder, unspecified; Z88.2 Allergy status to sulfonamides; Z88.6 Allergy status to analgesic agent; Z88.8 Allergy status to other drugs, medicaments and biological substances; Z79.899 Other long term (current) drug therapy
CPT/HCPCS: 73030; 99283

== ENCOUNTER 2018-06-28 19:33 | Emergency (ER) | payer MEDICAID ==
[~2018-06-28] VITALS: Ht 157.5 cm; Wt 59.0 kg
--- NOTE | 2018-06-28 19:46 | NUR ---
Patient to ER bed 05 to gown for evaluation. Side rails up.
[2018-06-28 19:50] VITALS: BP_SYST 138
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
--- NOTE | 2018-06-28 21:45 | NUR ---
ER MD Thapa at bedside for medical evaluation.
--- NOTE | 2018-06-28 23:05 | NUR ---
Patient sleeping comfortably at this time. No acute distress noted.
--- NOTE | 2018-06-29 01:00 | NUR ---
Patient sleeping comfortably at this time. Rise and fall of chest noted.
--- NOTE | 2018-06-29 02:55 | NUR ---
Patient awake and states she is hungry, provided a sandwich, jello, and a juice.
[2018-06-29 03:07] LABS: BASOPHILS # (AUTO) 0.1 K/uL (0.0-0.2); EOSINOPHILS # (AUTO) 0.2 K/uL (0.0-0.4); HEMATOCRIT 42.3 % (36-48); HEMOGLOBIN 14.1 g/dL (12.0-16.0); LYMPHOCYTES # (AUTO) 3.4 K/uL (1.0-5.5); LYMPHOCYTES % (AUTO) 38.2 % (20.5-51.5); MEAN CORPUSCULAR HEMOGLOBIN 31 pg (27-31); MEAN CORPUSCULAR HGB CONC 33 % (32-36); MEAN CORPUSCULAR VOLUME 92 fL (79.0-98.0); MONOCYTES # (AUTO) 0.9 K/uL (0.0-1.0); MONOCYTES % (AUTO) 9.6 % (1.7-9.3); NEUTROPHILS # (AUTO) 4.4 K/uL (1.8-7.7); NEUTROPHILS % (AUTO) 49.2 % (40.0-70.0); PLATELET COUNT (AUTO) 314 K/uL (130-430); RED BLOOD CELL COUNT(AUTO) 4.58 MIL/uL (4.2-6.2); WHITE BLOOD COUNT (AUTO) 8.9 K/uL (4.8-10.8)
[2018-06-29 03:13] LABS: CALCIUM 9.3 mg/dL (8.4-11.0); CREATININE 0.97 mg/dL (0.55-1.30); POTASSIUM 3.6 mmol/L (3.5-5.1)
[2018-06-29 03:20] LABS: ALBUMIN 3.6 g/dL (3.4-4.8); TOTAL BILIRUBIN 0.6 mg/dL (0.0-1.0)
--- NOTE | 2018-06-29 04:45 | NUR ---
Patient sleeping comfortably no acute distress noted. Rise and fall of chest noted.
--- NOTE | 2018-06-29 06:04 | NUR ---
Attempting to discharge patient at this time, patient stated "why are you discharging me if I am suicidal, fuck". Patient unwilling to provide additional information at this time. MD Thapa made aware.
--- NOTE | 2018-06-29 06:14 | NUR ---
Patient angry and proceded to wrap shoe lace around neck. Security at bedside to strip patient from belongings.
--- NOTE | 2018-06-29 06:30 | NUR ---
Security at bedside to wand patient.
[2018-06-29] MEDS ORDERED: HALOPERIDOL LACTATE 5 MG/ML VIAL IM ONE (06:45)
--- NOTE | 2018-06-29 06:45 | NUR ---
Patient on [facility] speaking to MD Thapa.
--- NOTE | 2018-06-29 07:00 | NUR ---
No adverse reactions noted after medication administration. Will continue to monitor.
[2018-06-29 07:08] LABS: ALCOHOL, BLOOD < 3 mg/dL (<10)
--- NOTE | 2018-06-29 07:15 | NUR ---
REPORT WAS TAKEN FROM MARINE EQUIPMENT ENGINEER NURSE AT BEDSIDE. PATIENT IS RESTING IN BED WITH NO SIGNS OF DISTRESS. ALL ITEMS REMOVED FROM ROOM.
--- NOTE | 2018-06-29 07:30 | NUR ---
PATIENT RESTING IN BED COMPLAINING OF BEING COLD. WILL GET SOME BLANKETS FOR HER.
[2018-06-29 07:33] LABS: ACETAMINOPHEN < 1 ug/mL (1-30)
--- NOTE | 2018-06-29 07:38 | NUR ---
PATIENT WANDED BY SECURITY FOR CHANGE OF SHIFT. PATIENT WAS CLEARED.
--- NOTE | 2018-06-29 07:45 | NUR ---
PATIENT SLEEPING IN BED. RISE AND FALL OF CHEST NOTED.
--- NOTE | 2018-06-29 08:00 | NUR ---
PATIENT SLEEPING IN BED. RISE AND FALL OF CHEST NOTED.
--- NOTE | 2018-06-29 08:15 | NUR ---
PATIENT SLEEPING IN BED. RISE AND FALL OF CHEST NOTED. PATIENT TWITCHING HAND.
--- NOTE | 2018-06-29 08:30 | NUR ---
PATIENT SLEEPING IN BED. NO RESPIRATORY DISTRESS NOTED. RISE AND FALL OF CHEST NOTED.
--- NOTE | 2018-06-29 08:45 | NUR ---
PATIENT SLEEPING IN BED. PATIENT REPOSITIONED SELF. RISE AND FALL OF CHEST NOTED.
--- NOTE | 2018-06-29 09:00 | NUR ---
PATIENT SLEEPING IN BED. RISE AND FALL OF CHEST NOTED.
--- NOTE | 2018-06-29 09:15 | NUR ---
PATIENT SLEEPING IN BED. RISE AND FALL OF CHEST NOTED.
--- NOTE | 2018-06-29 09:30 | NUR ---
PATIENT SLEEPING IN BED. RISE AND FALL OF CHEST NOTED. NO SIGNS OF DISTRESS AT MOMENT.
--- NOTE | 2018-06-29 09:45 | NUR ---
PATIENT AWAKE IN BED, FIDGETING. PATIENT NOT COMPLAINING OF DISTRESS.
--- NOTE | 2018-06-29 10:00 | NUR ---
PATIENT ASLEEP IN BED. PATIENT MOVING LEGS. RISE AND FALL OF CHEST NOTED.
--- NOTE | 2018-06-29 10:15 | NUR ---
PATIENT SLEEPING IN BED. RISE AND FALL OF CHEST NOTED.
--- NOTE | 2018-06-29 10:22 | NUR ---
PATIENT ASSISTED TO RESTROOM. DOOR LEFT SLIGHTLY OPEN. PATIENT BACK IN BED RESTING.
--- NOTE | 2018-06-29 10:30 | NUR ---
PATIENT ASLEEP IN BED. RISE AND FALL OF CHEST NOTED. PATIENT'S FINGER TWITCHED.
--- NOTE | 2018-06-29 10:45 | NUR ---
PATIENT RESTING IN BED. PATIENT ROCKING SELF. PATIENT WAS TOSSING IN BED EARLIER, MOANING. PATIENT NO LONGER MOANING.
--- NOTE | 2018-06-29 11:00 | NUR ---
PT IN BED SLEEPING. NO DISTRESS VISUALIZED.
--- NOTE | 2018-06-29 11:15 | NUR ---
PATIENT ASLEEP IN BED. RISE AND FALL OF CHEST NOTED.
--- NOTE | 2018-06-29 11:30 | NUR ---
PATIENT ASLEEP IN BED. PATIENT MOVING FEET. RISE AND FALL OF CHEST NOTED.
--- NOTE | 2018-06-29 11:45 | NUR ---
PATIENT SITTING IN BED, ROCKING. PATIENT EATING LUNCH. PATIENT NOT COMPLAINING OF ANY DISTRESS.
--- NOTE | 2018-06-29 11:58 | NUR ---
DR JEAN-BAPTISTE AT BEDSIDE EXAMINING PATIENT.
--- NOTE | 2018-06-29 11:58 | NUR ---
Psychiatric MD at bedside at this time.
--- NOTE | 2018-06-29 12:15 | NUR ---
PT IS IN BED SLEEPING. NO DISTRESS. NOTED.
--- NOTE | 2018-06-29 12:30 | NUR ---
PT IS IN BED SLEEPING. NO DISTRESS NOTED.
--- NOTE | 2018-06-29 12:45 | NUR ---
Pt sleeping in bed. No distress noted.
--- NOTE | 2018-06-29 13:00 | NUR ---
Pt asleep in bed. Chest rise/fall noted. Pt noted to be in no distress.
--- NOTE | 2018-06-29 13:15 | NUR ---
Pt asleep in bed. Chest rise/fall noted. Pt noted to be in no distress.
--- NOTE | 2018-06-29 13:47 | NUR ---
pt sleeping in bed with siderails up. no signs of distress, will continue to monitor
--- NOTE | 2018-06-29 14:15 | NUR ---
PATIENT WAS ASSISTED TO RESTROOM. DOOR SLIGHTLY OPEN FOR SAFETY. PATIENT PUT BACK IN BED. WILL CONTINUE TO MONITOR.
--- NOTE | 2018-06-29 14:51 | NUR ---
Guadalupe Wang called [facility]. Per Shayy, they will discuss possibility of admitting the pt once chart is faxed over to them and call back. Chart was sent via fax.
--- NOTE | 2018-06-29 15:02 | NUR ---
Guadalupe Wang placed call to [facility]. Per Maria De Jesus, she is not sure if their facility has an open bed to admit pt. She requested chart to be faxed over and she will call back if there is availability. Chart sent via fax.
[2018-06-29 15:14] LABS: BLOOD, URINE NEGATIVE (NEGATIVE); CLARITY/URINE CLEAR (CLEAR); COLOR,URINE YELLOW (YELLOW); GLUCOSE,URINE NEGATIVE (NEGATIVE); KETONES,URINE TRACE (NEGATIVE); LEUKOCYTE ESTERASE ,URINE NEGATIVE (NEGATIVE); NITRITE, URINE NEGATIVE (NEGATIVE); PH,URINE 5.5 (5.0-8.0); PROTEIN URINE TRACE (NEGATIVE)
--- NOTE | 2018-06-29 15:15 | NUR ---
PATIENT ASLEEP IN BED. RISE AND FALL OF CHEST NOTED.
--- NOTE | 2018-06-29 15:16 | NUR ---
Guadalupe Wang placed call to [facility]. Per facility, no current beds available.
[2018-06-29 15:20] LABS: BILIRUBIN,URINE 1+ (NEGATIVE)
[2018-06-29 15:27] LABS: CANNABINOID, URINE POSITIVE (NEG <=50)
[2018-06-29 15:28] LABS: BARBITURATE, URINE NEGATIVE (NEG <=200); BENZODIAZEPINE, URINE NEGATIVE (NEG <=150); COCAINE, URINE NEGATIVE (NEG <=150); METHAMPHETAMINES SCREEN,URINE POSITIVE (NEG <=500); OPIATE, URINE NEGATIVE (NEG <=100); PHENCYCLIDINE SCREEN,URINE NEGATIVE (NEG <=25); UR TRICYCLIC ANTIDEPRESSANTS NEGATIVE (NEG <=300); URINE AMPHETAMINE POSITIVE (NEG <=500); URINE METHADONE NEGATIVE (NEG <=200); URINE OXYCODONE SCREEN NEGATIVE (NEG <=100); URINE PROPOXYPHENE SCREEN NEGATIVE (NEG <=300)
[2018-06-29 15:30] LABS: RBC,URINE 0-3 /HPF (0-3); WBC,URINE 0-3 /HPF (0-3)
--- NOTE | 2018-06-29 15:30 | NUR ---
PATIENT ASLEEP IN BED. RISE AND FALL OF CHEST NOTED. NO SIGNS OF DISTRESS AT MOMENT.
[2018-06-29 15:31] LABS: BACTERIA,URINE RARE /HPF (None Seen); MUCUS,URINE None Seen /LPF (None Seen)
--- NOTE | 2018-06-29 15:41 | NUR ---
Guadalupe Wang placed call to [facility]. Per facility, there are no current beds available.
--- NOTE | 2018-06-29 15:45 | NUR ---
PATIENT ASLEEP IN BED. RISE AND FALL OF CHEST NOTED.
--- NOTE | 2018-06-29 15:47 | NUR ---
Guadalupe Wang placed call to [facility]. Per Sia, no current beds available.
--- NOTE | 2018-06-29 15:58 | NUR ---
Guadalupe Wang placed call to [facility]. Per Jose M, they received additional labs on this pt. Jose M requested for us to call back in 15 minutes since they are in between shift change.
--- NOTE | 2018-06-29 16:00 | NUR ---
PATIENT ASLEEP IN BED. PATIENT REPOSITIONED SELF FOR COMFORT.
--- NOTE | 2018-06-29 16:15 | NUR ---
PATIENT AWAKE RESTING IN BED. PATIENT COMPLAINING OF HOT FLASHES. NO SIGNS OF RESP DISTRESS.
--- NOTE | 2018-06-29 16:17 | NUR ---
Guadalupe Wang placed call back to [facility]. Per Ling, they will call back once the labs have been reviewed.
--- NOTE | 2018-06-29 16:19 | NUR ---
MED REC: WENT OVER PATIENT'S MEDICATIONS. PATIENT SAID SHE HASNT TAKEN ANY MEDICATIONS IN A YEAR BUT THE ONES SHE TOOK ARE THE ONES LISTED IN HER MED REC.
--- NOTE | 2018-06-29 16:30 | NUR ---
PATIENT ASLEEP IN BED. RISE AND FALL OF CHEST NOTED.
--- NOTE | 2018-06-29 16:45 | NUR ---
PATIENT AWAKE, RESTING IN BED. PATIENT MOVING AROUND.
--- NOTE | 2018-06-29 17:00 | NUR ---
PATIENT RESTING IN BED. PATIENT WAS GIVEN WATER.
--- NOTE | 2018-06-29 17:14 | NUR ---
PT SLEEPING IN BED. NO SIGNS OF DISTRESS, WILL CONTINUE TO MONITOR.
--- NOTE | 2018-06-29 17:25 | NUR ---
Guadalupe Wang placed call to [facility]. Per Yin, no beds currently available. She advised to go ahead and send chart to be added to the wait list. Chart sent via fax.
--- NOTE | 2018-06-29 17:30 | NUR ---
PATIENT ASLEEP IN BED. RISE AND FALL OF CHEST NOTED.
--- NOTE | 2018-06-29 17:35 | NUR ---
Guadalupe Wang placed call to [facility]. Per Stephan, no beds currently available. OK to send chart to add for wait list. Charts sent via fax.
--- NOTE | 2018-06-29 17:45 | NUR ---
PATIENT ASLEEP IN BED. RISE AND FALL OF CHEST NOTED.
--- NOTE | 2018-06-29 17:59 | NUR ---
SPOKE TO RHETT FROM [employer] FOR UPDATE ON PATIENT. REQUESTING PAPER FROM THAT PATIENT DOES NOT HAVE DEMENTIA.
--- NOTE | 2018-06-29 18:02 | NUR ---
PATIENT ASLEEP IN BED. RISE AND FALL OF CHEST NOTED. NO SIGNS OF RESP DISTRESS.
--- NOTE | 2018-06-29 18:04 | NUR ---
DRUG ABUSE COUNSELOR CALLED [facility] TO CLARIFY DOCUMENTATION OF DEMENTIA. PATIENT WAS ACCEPTED UNDER DR. BAILEY. REPORT TO BE CALLED AT 1999.
--- NOTE | 2018-06-29 18:15 | NUR ---
PATIENT RESTING IN BED. PATIENT MOVING AROUND TRYING TO GET COMFORTABLE.
--- NOTE | 2018-06-29 18:32 | NUR ---
PATIENT ASLEEP IN BED WITH NO SIGNS OF DISTRESS. RISE AND FALL OF CHEST NOTED.
--- NOTE | 2018-06-29 18:45 | NUR ---
PATIENT OFFERED DINNER. PATIENT REFUSED AT THE MOMENT. PATIENT WANTED JUICES THOUGH. PATIENT RESTING IN BED.
--- NOTE | 2018-06-29 18:54 | NUR ---
Pt resting in bed
--- NOTE | 2018-06-29 18:57 | NUR ---
LIQUOR CLERK AT BEDSIDE SITTING FOR PATIENT.
--- NOTE | 2018-06-29 19:15 | NUR ---
PATIENT ASLEEP SUPERVISOR SHELLFISH FARMING AT BEDSIDE
--- NOTE | 2018-06-29 19:22 | NUR ---
ENDORSED CARE TO NIGHT NURSE WALESKA.
--- NOTE | 2018-06-29 19:29 | NUR ---
PATIENT RESTING MANAGER APPLICATION DEVELOPMENT AT BEDSIDE
--- NOTE | 2018-06-29 19:43 | NUR ---
PATIENT ASLEEP BEAM PRESS OPERATOR AT BEDSIDE
--- NOTE | 2018-06-29 20:02 | NUR ---
PATIENT SLEEPING CAN AT BEDSIDE
--- NOTE | 2018-06-29 20:25 | NUR ---
Patient to be transferred to [facility]. Is being transferred due to continuation of care. Receiving facility has accepting physician and available space. ER physician has signed transfer form. Patient or responsible green party has agreed to transfer and signed form. Patient belongings inventoried and will be sent with patient. Copy of nursing notes, lab reports, EKG, Physicians Orders and X-rays to be sent with patient. Report called to at receiving facility. Receiving physician is Dr. Nettles. [facility] has been called for transfer. ETA is 40mins.
[2018-06-29 20:26] VITALS: BP_SYST 112
== END 2018-06-29 20:26 ==
LOC: SED 19:33
DX: R10.9 Unspecified abdominal pain (principal); R03.0 Elevated blood-pressure reading, without diagnosis of hypertension; F17.210 Nicotine dependence, cigarettes, uncomplicated; J45.909 Unspecified asthma, uncomplicated; Z88.2 Allergy status to sulfonamides; Z88.6 Allergy status to analgesic agent; Z88.8 Allergy status to other drugs, medicaments and biological substances; Z79.899 Other long term (current) drug therapy
CPT/HCPCS: 36415; 80053; 80307; 81000; 83690; 85025; 96372; 99285; G0480; G0481; G0482; J1630

== ENCOUNTER 2019-01-22 12:17 | Emergency (ER) | payer MEDICAID ==
[~2019-01-22] VITALS: Ht 157.5 cm; Wt 59.0 kg
[~2019-01-22 12:17] MED LIST changes: -BUSP5TAB3 PO; -TRAZ-218 PO; +TRAZ-250 PO
[2019-01-22 12:21] VITALS: BP_SYST 152
[2019-01-22] MEDS ORDERED: ACETAMINOPHEN 500 MG TABLET PO ONE (12:45)
[2019-01-22] MEDS ORDERED: ACETAMINOPHEN 500 MG TABLET ONE (12:48)
[2019-01-22] MEDS ORDERED: HYDROcodone/ACETAMIN 5-325 MG TAB (NORCO/ VICODIN) PO ONE (14:00)
[2019-01-22 14:25] LABS: BASOPHILS # (AUTO) 0.1 K/uL (0.0-0.2); BASOPHILS % (AUTO) 0.5 % (0.0-2.0); EOSINOPHILS # (AUTO) 0.1 K/uL (0.0-0.4); EOSINOPHILS % (AUTO) 0.5 % (0.0-4.0); HEMATOCRIT 41.4 % (36-48); HEMOGLOBIN 13.9 g/dL (12.0-16.0); LYMPHOCYTES # (AUTO) 1.9 K/uL (1.0-5.5); LYMPHOCYTES % (AUTO) 16.9 % (20.5-51.5); MEAN CORPUSCULAR HEMOGLOBIN 31 pg (27-31); MEAN CORPUSCULAR HGB CONC 34 % (32-36); MEAN CORPUSCULAR VOLUME 93 fL (79.0-98.0); MONOCYTES # (AUTO) 0.8 K/uL (0.0-1.0); MONOCYTES % (AUTO) 7.1 % (1.7-9.3); NEUTROPHILS # (AUTO) 8.4 K/uL (1.8-7.7); PLATELET COUNT (AUTO) 355 K/uL (130-430); RED BLOOD CELL COUNT(AUTO) 4.47 MIL/uL (4.2-6.2); RED CELL DISTRIBUTION WIDTH 13.9 % (9.0-15.0); WHITE BLOOD COUNT (AUTO) 11.2 K/uL (4.8-10.8)
[2019-01-22 14:34] LABS: ANION GAP 7 (5-15); CHLORIDE 105 mmol/L (98-107); CREATININE 1.04 mg/dL (0.55-1.30); GLUCOSE 68 mg/dL (70-99); POTASSIUM 3.6 mmol/L (3.5-5.1); SODIUM SERUM 138 mmol/L (136-145); UREA NITROGEN, BLOOD 8 mg/dL (8-21)
[2019-01-22 14:38] LABS: GFR AFRICAN AMERICAN 72 mL/min (>90); PROTHROMBIN TIME 9.7 SECS (9.5-12.5)
[2019-01-22 14:39] LABS: ALANINE AMINOTRANSFERASE 21 U/L (12-78); ALBUMIN 3.8 g/dL (3.4-4.8); ASPARTATE AMINOTRANSFERASE 18 U/L (10-37); TOTAL BILIRUBIN 0.6 mg/dL (0.0-1.0); URIC ACID 5.3 mg/dL (2.4-7.0)
[2019-01-22 14:40] LABS: C-REACTIVE PROTEIN QUANT < 0.2 mg/dL (0-0.5)
[2019-01-22 15:11] LABS: ERYTHROCYTE SEDIMENTATION RATE 13 MM/HR (0-20)
[2019-01-22 16:40] VITALS: BP_SYST 116
== END 2019-01-22 16:40 | disposition home or self-care (01) ==
LOC: SED 12:17
DX: G62.9 Polyneuropathy, unspecified (principal); J45.909 Unspecified asthma, uncomplicated; Z88.8 Allergy status to other drugs, medicaments and biological substances
CPT/HCPCS: 36415; 80053; 84550-TC; 84703; 85025; 85610-TC; 85651-TC; 85730-TC; 86140; 99284

== ENCOUNTER 2019-11-09 19:40 | Emergency (ER) | payer MEDICAID ==
[~2019-11-09] VITALS: Ht 167.6 cm; Wt 59.0 kg
[2019-11-09 19:50] VITALS: BP_SYST 103
--- NOTE | 2019-11-09 19:50 | NUR ---
Patient to ER bed 3 to gown for evaluation. Side rails up. Report given to RAMAKRISHNA.
--- NOTE | 2019-11-09 19:55 | NUR ---
ER at bedside examining patient.
--- NOTE | 2019-11-09 20:00 | NUR ---
Pt presents to the ER c/o facial/sinus pain x 6 days. Pt reports pain starting on L side and radiating to left side of the head. Denies n/v, sob, drooling.
[2019-11-09 20:20] VITALS: BP_SYST 103
--- NOTE | 2019-11-09 20:20 | NUR ---
Patient given written and verbal discharge instructions and verbalizes understanding. ER MD discussed with patient the results and treatment provided. Patient in stable condition. ID arm band removed. Rx of Amoxicillin and norco given. Patient educated on pain management and to follow up with PMD. Pain Scale 8/10.Pt provided 24 hour pharmacy list. Opportunity for questions provided and answered. Medication side effect fact sheet provided.
== END 2019-11-09 20:20 | disposition home or self-care (01) ==
LOC: SED 19:40
DX: K04.7 Periapical abscess without sinus (principal); J45.909 Unspecified asthma, uncomplicated; Z79.899 Other long term (current) drug therapy; Z88.2 Allergy status to sulfonamides; Z88.6 Allergy status to analgesic agent
CPT/HCPCS: 99283

== ENCOUNTER 2020-07-21 03:49 | Emergency (ER) | payer MEDICAID ==
[~2020-07-21] VITALS: Ht 167.6 cm; Wt 61.2 kg
[~2020-07-21 03:49] MED LIST changes: -ARIP5TAB19 PO; +ARIP5TAB55 PO
[2020-07-21 03:54] VITALS: BP_SYST 119
[2020-07-21 04:17] LABS: BASOPHILS % (AUTO) 0.5 % (0.0-2.0); EOSINOPHILS # (AUTO) 0.3 K/uL (0.0-0.4); EOSINOPHILS % (AUTO) 3.5 % (0.0-4.0); HEMATOCRIT 37.3 % (36-48); HEMOGLOBIN 12.5 g/dL (12.0-16.0); MEAN CORPUSCULAR HEMOGLOBIN 31 pg (27-31); MEAN CORPUSCULAR HGB CONC 34 % (32-36); MEAN CORPUSCULAR VOLUME 92 fL (79.0-98.0); MONOCYTES # (AUTO) 0.9 K/uL (0.0-1.0); MONOCYTES % (AUTO) 9.4 % (1.7-9.3); NEUTROPHILS # (AUTO) 5.4 K/uL (1.8-7.7); NEUTROPHILS % (AUTO) 55.6 % (40.0-70.0); PLATELET COUNT (AUTO) 324 K/uL (130-430); RED BLOOD CELL COUNT(AUTO) 4.07 MIL/uL (4.2-6.2); RED CELL DISTRIBUTION WIDTH 13.9 % (9.0-15.0); WHITE BLOOD COUNT (AUTO) 9.8 K/uL (4.8-10.8)
[2020-07-21 04:30] LABS: CALCIUM 8.4 mg/dL (8.4-11.0); CREATININE 1.13 mg/dL (0.55-1.30); POTASSIUM 3.7 mmol/L (3.5-5.1)
[2020-07-21] MEDS ORDERED: NACL 0.9% 1,000 ML IV ONE (04:30)
[2020-07-21 04:36] LABS: ALBUMIN 3.4 g/dL (3.4-4.8); AMYLASE 91 U/L (0-100); LIPASE 191 U/L (73-393); TOTAL BILIRUBIN 0.2 mg/dL (0.0-1.0)
[2020-07-21 04:47] LABS: INR 0.9 (0.8-1.2); PROTHROMBIN TIME 9.7 SECS (9.5-12.5)
[2020-07-21 06:50] VITALS: BP_SYST 102
[2020-07-21] MEDS ORDERED: MAG HYDROX/AL HYDROX/SIMETH 30 ML, DICYCLOMINE HCL 20 MG, LIDOCAINE VISCOUS 2% 15ML (PO... PO ONE ×3 (07:00)
== END 2020-07-21 07:37 ==
LOC: SED 03:49
DX: R10.10 Upper abdominal pain, unspecified (principal); J45.909 Unspecified asthma, uncomplicated; Z79.899 Other long term (current) drug therapy; Z88.2 Allergy status to sulfonamides; Z88.6 Allergy status to analgesic agent; Z88.8 Allergy status to other drugs, medicaments and biological substances
CPT/HCPCS: 36415; 74176; 76376; 80053; 82150; 83690; 85025; 85610; 96360; 99284; J2001; J7030

== ENCOUNTER 2021-08-15 16:36 | Emergency (ER) | payer MEDICAID ==
[~2021-08-15] VITALS: Ht 165.1 cm; Wt 61.2 kg
[2021-08-15 16:36] VITALS: BP_SYST 111
--- NOTE | 2021-08-15 16:36 | NUR ---
BROUGHT IN BY [facility] AND PLACED IN HALLWAY BED. WILL ASSUME CARE
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
--- NOTE | 2021-08-15 17:11 | NUR ---
DR MCKEON AT BEDSIDE FOR EVALUATION
[2021-08-15] MEDS ORDERED: LORazepam 1 MG TABLET PO ONE (17:15)
[2021-08-15] MEDS ORDERED: DIPH-TET-PERTUS Vaccine 0.5 ML VIAL (ADACEL) I.M. ONE (17:45)
--- NOTE | 2021-08-15 19:18 | NUR ---
Patient given written and verbal discharge instructions and verbalizes understanding. ER MD discussed with patient the results and treatment provided. Patient in stable condition. ID arm band removed. IV catheter removed intact and dressing applied, no active bleeding. Rx of clonipin, trazadone given. Patient educated on pain management and to follow up with PMD. Pain Scale . Opportunity for questions provided and answered. Medication side effect fact sheet provided.
== END 2021-08-15 19:18 | disposition home or self-care (01) ==
LOC: SED 16:36
DX: S91.312A Laceration without foreign body, left foot, initial encounter (principal); F41.0 Panic disorder [episodic paroxysmal anxiety]; F43.0 Acute stress reaction; Z88.2 Allergy status to sulfonamides; Z88.5 Allergy status to narcotic agent; Z88.6 Allergy status to analgesic agent; W45.8XXA Other foreign body or object entering through skin, initial encounter; Y93.89 Activity, other specified; Y92.89 Other specified places as the place of occurrence of the external cause; Y99.8 Other external cause status
CPT/HCPCS: 90715; 99281; 99283

== ENCOUNTER 2021-08-17 11:38 | Emergency (ER) | payer MEDICAID ==
[~2021-08-17] VITALS: Ht 165.1 cm; Wt 61.2 kg
[2021-08-17 11:46] VITALS: BP_SYST 107
--- NOTE | 2021-08-17 12:04 | NUR ---
ER Dr Camarena to waiting area to evaluate patient
[2021-08-17] MEDS ORDERED: MORPHINE 4 MG INJ. 4 MG/ML VIAL IM ONE (12:15)
--- NOTE | 2021-08-17 12:23 | NUR ---
Pt ambulatory to radiology
[2021-08-17 12:27] LABS: BASOPHILS % (AUTO) 0.5 % (0.0-2.0); EOSINOPHILS % (AUTO) 0.3 % (0.0-4.0); HEMATOCRIT 39.9 % (36-48); HEMOGLOBIN 13.4 g/dL (12.0-16.0); LYMPHOCYTES # (AUTO) 2.1 K/uL (1.0-5.5); LYMPHOCYTES % (AUTO) 22.4 % (20.5-51.5); MEAN CORPUSCULAR HEMOGLOBIN 30 pg (27-31); MEAN CORPUSCULAR HGB CONC 34 % (32-36); MEAN CORPUSCULAR VOLUME 90 fL (79.0-98.0); MONOCYTES # (AUTO) 0.8 K/uL (0.0-1.0); MONOCYTES % (AUTO) 8.8 % (1.7-9.3); NEUTROPHILS # (AUTO) 6.5 K/uL (1.8-7.7); PLATELET COUNT (AUTO) 338 K/uL (130-430); RED BLOOD CELL COUNT(AUTO) 4.43 MIL/uL (4.2-6.2); WHITE BLOOD COUNT (AUTO) 9.6 K/uL (4.8-10.8)
[2021-08-17 12:42] LABS: ANION GAP 7 (5-15); CALCIUM 8.5 mg/dL (8.4-11.0); CHLORIDE 103 mmol/L (98-107); CREATININE 1.24 mg/dL (0.55-1.30); GLUCOSE 98 mg/dL (70-99); POTASSIUM 3.9 mmol/L (3.5-5.1); SODIUM SERUM 135 mmol/L (136-145); UREA NITROGEN, BLOOD 16 mg/dL (8-21)
[2021-08-17 12:46] LABS: GFR AFRICAN AMERICAN 58 mL/min (>90)
[2021-08-17 12:53] LABS: ALANINE AMINOTRANSFERASE 21 U/L (12-78); ALBUMIN 3.5 g/dL (3.4-4.8); ASPARTATE AMINOTRANSFERASE 16 U/L (10-37); TOTAL BILIRUBIN 0.4 mg/dL (0.0-1.0)
--- NOTE | 2021-08-17 13:09 | NUR ---
MEDICATED WITH MORPHINE FOR PAIN. EKG DONE BEDSIDE.
--- NOTE | 2021-08-17 15:40 | NUR ---
PT REQUESTING SOCIAL SERVICE FOLLOW UP. CONTACT NUMBER FOR [facility] [phone]
--- NOTE | 2021-08-17 15:45 | NUR ---
Patient given written and verbal discharge instructions and verbalizes understanding. ER MD discussed with patient the results and treatment provided. Patient in stable condition. ID arm band removed. IV catheter removed intact and dressing applied, no active bleeding.Patient educated on pain management and to follow up with PMD. Pain Scale 1. Opportunity for questions provided and answered. Medication side effect fact sheet provided.
[2021-08-17 15:47] VITALS: BP_SYST 124
== END 2021-08-17 15:45 | disposition home or self-care (01) ==
LOC: SED 11:38
DX: R07.9 Chest pain, unspecified (principal); R10.817 Generalized abdominal tenderness; R11.0 Nausea; R05.9 Cough, unspecified
CPT/HCPCS: 36415; 71045; 80053; 84484; 85025; 93005; 96372; 99285; J2270

== ENCOUNTER 2023-12-10 09:19 | Emergency (ER) | payer MEDICAID, OTHER ==
[~2023-12-10] VITALS: Ht 165.1 cm; Wt 61.2 kg
[~2023-12-10 09:19] MED LIST changes: +ARIP5TAB PO; -ARIP5TAB55 PO; +CLON0.5T2 PO; -KLO.5 PO
[2023-12-10 09:20] VITALS: BP_SYST 129; PULSE 99; RESP 18; TEMP 98.5; O2SAT 99
[2023-12-10 10:53] LABS: BASOPHILS # (AUTO) 0.1 K/uL (0.0-0.2); BASOPHILS % (AUTO) 0.9 % (0.0-2.0); EOSINOPHILS % (AUTO) 0.2 % (0.0-4.0); HEMATOCRIT 39.1 % (36-48); LYMPHOCYTES # (AUTO) 2.6 K/uL (1.0-5.5); LYMPHOCYTES % (AUTO) 18.6 % (20.5-51.5); MEAN CORPUSCULAR HEMOGLOBIN 30 pg (27-31); MEAN CORPUSCULAR HGB CONC 33 % (32-36); MEAN CORPUSCULAR VOLUME 91 fL (79.0-98.0); MONOCYTES # (AUTO) 0.9 K/uL (0.0-1.0); MONOCYTES % (AUTO) 6.5 % (1.7-9.3); NEUTROPHILS # (AUTO) 10.2 K/uL (1.8-7.7); NEUTROPHILS % (AUTO) 73.8 % (40.0-70.0); PLATELET COUNT (AUTO) 331 K/uL (130-430); RED BLOOD CELL COUNT(AUTO) 4.32 MIL/uL (4.2-6.2); RED CELL DISTRIBUTION WIDTH 14.3 % (9.0-15.0); WHITE BLOOD COUNT (AUTO) 13.8 K/uL (4.8-10.8)
[2023-12-10] MEDS: NACL 0.9% 1,000 ML IV ONE (11:00)
[2023-12-10] MEDS: ONDANSETRON HCL 4 MG/2 ML VIAL IVP ONE (11:00)
[2023-12-10 11:18] LABS: BILIRUBIN,URINE NEGATIVE (NEGATIVE); BLOOD, URINE NEGATIVE (NEGATIVE); CLARITY/URINE CLEAR (CLEAR); COLOR,URINE YELLOW (YELLOW); GLUCOSE,URINE NEGATIVE (NEGATIVE); KETONES,URINE NEGATIVE (NEGATIVE); LEUKOCYTE ESTERASE ,URINE NEGATIVE (NEGATIVE); NITRITE, URINE NEGATIVE (NEGATIVE); PH,URINE 7.5 (5.0-8.0); PROTEIN URINE NEGATIVE (NEGATIVE); UROBILINOGEN,URINE 0.2 (0.2-1.0)
[2023-12-10 11:35] LABS: BARBITURATE, URINE NEGATIVE (NEG <=200); BENZODIAZEPINE, URINE NEGATIVE (NEG <=150); CANNABINOID, URINE POSITIVE (NEG <=50); COCAINE, URINE NEGATIVE (NEG <=150); METHAMPHETAMINES SCREEN,URINE POSITIVE (NEG <=500); URINE METHADONE NEGATIVE (NEG <=200)
[2023-12-10 11:36] LABS: OPIATE, URINE NEGATIVE (NEG <=100); PHENCYCLIDINE SCREEN,URINE NEGATIVE (NEG <=25); UR TRICYCLIC ANTIDEPRESSANTS NEGATIVE (NEG <=300); URINE OXYCODONE SCREEN NEGATIVE (NEG <=100)
[2023-12-10 11:43] LABS: ANION GAP 10 (5-15); CALCIUM 9.6 mg/dL (8.4-11.0); CARBON DIOXIDE 27 mmol/L (23-29); CHLORIDE 105 mmol/L (98-107); CREATINE KINASE, TOTAL 264 U/L (26-192); CREATININE 1.07 mg/dL (0.55-1.30); GFR AFRICAN AMERICAN 68 mL/min (>90); GLUCOSE 111 mg/dL (74-106); POTASSIUM 4.1 mmol/L (3.5-5.1); SALICYLATE 5 mg/dL (3-30); SODIUM SERUM 142 mmol/L (136-145); UREA NITROGEN, BLOOD 21 mg/dL (8-21)
[2023-12-10 11:46] LABS: URINE AMPHETAMINE POSITIVE (NEG <=500)
[2023-12-10 11:47] LABS: ACETAMINOPHEN < 1 ug/mL (1-30); ALCOHOL, BLOOD < 3 mg/dL (<10); GFR NON AFRICAN-AMERICAN 56 mL/min (>90)
[2023-12-10 12:28] LABS: CKMB RELATIVE INDEX 1.5 (0.0-2.9)
[2023-12-10 13:54] VITALS: BP_SYST 129; PULSE 84; RESP 14; TEMP 97.6; O2SAT 97
== END 2023-12-10 13:52 | disposition home or self-care (01) ==
LOC: SED 09:19
DX: F19.10 Other psychoactive substance abuse, uncomplicated (principal); F12.10 Cannabis abuse, uncomplicated; R11.0 Nausea; R10.9 Unspecified abdominal pain; F17.200 Nicotine dependence, unspecified, uncomplicated; J45.909 Unspecified asthma, uncomplicated; F25.9 Schizoaffective disorder, unspecified; F31.9 Bipolar disorder, unspecified; F41.9 Anxiety disorder, unspecified; Z71.6 Tobacco abuse counseling; Z20.822 Contact with and (suspected) exposure to COVID-19; Z88.2 Allergy status to sulfonamides; Z88.1 Allergy status to other antibiotic agents; Z88.8 Allergy status to other drugs, medicaments and biological substances; Z79.899 Other long term (current) drug therapy
CPT/HCPCS: 99285; 96374; 96361; 87426; 80307; 80048; 81001; 82550; 82553; 85025; 36415; 81003; G0482; J2405; J7030; G0480; G0481